=== PATIENT | male | born 1955 | race Caucasian/White ===

== ENCOUNTER 2017-05-11 16:43 | Emergency (ER) | payer MEDICARE ==
[~2017-05-11] VITALS: Ht 182.9 cm; Wt 108.9 kg
[2017-05-11] MEDS ORDERED: CEFAZOLIN SOD 1 GM VIAL IM STA (16:55)
[2017-05-11] MEDS ORDERED: LIDOCAINE HCL 2% LOCAL 20 ML VIAL INJ STA (16:55)
[2017-05-11] MEDS ORDERED: TETANUS/DIPHTHERIA TOX ADULT 0.5 ML SYR IM STA (16:55)
[2017-05-11] MEDS ORDERED: NEOMYCIN/POLYMYX/BACITR OINT 0.9 GM PKT TOP STA (16:55)
[2017-05-11] MEDS ORDERED: HYDROCODONE/APAP 7.5MG-325MG 1 EA TAB PO STA (16:58)
[2017-05-11] MEDS ORDERED: LIDOCAINE HCL 1% LOCAL INJ 20 ML VIAL ONE (17:28)
[2017-05-11] MEDS ORDERED: TRIAMCINOLONE ACET 40 MG/ML VIAL ONE (17:33)
--- NOTE | 2017-05-11 17:46 | Diagnostic Imaging Report ---
HAND 3+ VIEWS LEFT - 3 views HISTORY: Pain COMPARISON: None available. FINDINGS: See impression. IMPRESSION: Nondisplaced fracture of the tip of the distal phalanx of the left fifth digit. Nondisplaced fracture of the middle phalanx of the fourth digit. Associated soft tissue swelling. Tiny ossified densities adjacent to the dorsal aspect of the tip of proximal phalanx of the thumb, probably from old avulsion injury. No associated soft tissue swelling. Signed by: Dr. Juan Ring MD on 05/11/2017 5:43 PM
[2017-05-11] MEDS ORDERED: MORPHINE SULFATE 2 MG/ML SYR ONE (19:17)
[2017-05-11] MEDS ORDERED: ONDANSETRON HCL 4 MG ORAL DISINTEGRATING TAB PO STA (19:46)
[2017-05-11] MEDS ORDERED: MORPHINE SULFATE 4 MG/ML SYR INJ PRN (20:00)
[2017-05-11 21:39] VITALS: BP 152/88
== END 2017-05-11 21:55 | disposition home or self-care (01) ==
LOC: ER 16:43
DX: S62.655B Nondisplaced fracture of middle phalanx of left ring finger, initial encounter for open fracture (principal); S62.667B Nondisplaced fracture of distal phalanx of left little finger, initial encounter for open fracture; S61.215A Laceration without foreign body of left ring finger without damage to nail, initial encounter; S61.217A Laceration without foreign body of left little finger without damage to nail, initial encounter; W23.0XXA Caught, crushed, jammed, or pinched between moving objects, initial encounter; Y92.008 Other place in unspecified non-institutional (private) residence as the place of occurrence of the external cause
CPT/HCPCS: 13132; 13133; 36415; 73130; 82948; 90471; 90714; 93005; 99284; J0690; J2001 ×2; J2270; J3301